=== PATIENT | female | born 1975 | race American Indian/Alaskan Native ===

== ENCOUNTER 2017-12-05 19:59 | Emergency (ER) | payer MEDICARE ==
[2017-12-05 20:49] VITALS: BP 135/94
--- NOTE | 2017-12-05 23:00 | XRay Report ---
FINAL REPORT PROCEDURE: XR SPINE CERVICAL 2-3V TECHNIQUE: Cervical spine, three views HISTORY: PAIN IN HEAD AND NECK S/P GLF COMPARISON: No prior studies are available for comparison. FINDINGS: There is straightening of the usual cervical lordosis. Vertebral body heights and alignment are maintained. Prevertebral soft tissues are within normal limits in thickness. Limited evaluation of the odontoid process. IMPRESSION: No acute fracture or subluxation is seen
--- NOTE | 2017-12-05 23:02 | XRay Report ---
FINAL REPORT PROCEDURE: XR KNEE 3V LT TECHNIQUE: Left knee, three views HISTORY: GLF, PAIN AND SWELLING L KNEE COMPARISON: No prior studies are available for comparison. FINDINGS: No acute fracture or dislocation is seen. No focal osseous lesions. 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
== END 2017-12-06 01:35 | disposition left against medical advice (07) ==
LOC: ED 19:59
DX: M79.1 Myalgia (principal); M25.562 Pain in left knee; M54.2 Cervicalgia; W22.8XXA Striking against or struck by other objects, initial encounter; Y93.89 Activity, other specified; Y92.89 Other specified places as the place of occurrence of the external cause; Y99.8 Other external cause status; Z53.21 Procedure and treatment not carried out due to patient leaving prior to being seen by health care provider
CPT/HCPCS: 72040